=== PATIENT | female | born 2000 | race Caucasian/White ===

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

== ENCOUNTER → 2024-10-16 | Outpatient (CLI) | payer BC, OTHER ==
[2024-10-18 13:41] LABS: C. TRACHOMATIS BY TMA,THINPREP Negative (Negative); N. GONORRHOEAE BY TMA,THINPREP Negative (Negative); SPECIMEN SOURCE Cervical/Vag
[2024-10-18 16:53] LABS: APTIMA MEDIA TYPE ThinPrep; SPECIMEN SOURCE Cervical/Vag; T. VAGINALIS BY TMA Negative (Negative)
== END ==
LOC: LAB SHORT 10:43 → LAB 10:43
PROVIDERS: Obstetrics & Gynecology
DX: Z01.419 Encounter for gynecological examination (general) (routine) without abnormal findings (principal); Z11.3 Encounter for screening for infections with a predominantly sexual mode of transmission
CPT/HCPCS: 87491; 87591; 87661; G0123

== ENCOUNTER → 2025-03-25 | Outpatient (CLI) | payer BC, OTHER | LOC: LAB SHORT 10:50 → LAB 10:50 | DX: Z34.03 Encounter for supervision of normal first pregnancy, third trimester (principal) | CPT/HCPCS: 87081; 87150 ==

== ENCOUNTER → 2025-09-17 | Outpatient (CLI) | payer BC, OTHER ==
[~2025-09-17] MED LIST changes: +PRENATAL 19 TA1 EAC3 PO
== END ==
LOC: LAB SHORT 17:26 → LAB 17:26
DX: J02.9 Acute pharyngitis, unspecified (principal)
CPT/HCPCS: 87081; 87147